=== PATIENT | female | born 1975 | race Asian ===

== ENCOUNTER 2018-12-20 11:20 | Emergency (ER) | payer OTHER ==
[~2018-12-20] VITALS: Ht 165.1 cm; Wt 49.9 kg
--- NOTE | 2018-12-20 11:32 | NUR ---
ED Nurse Note: PT WALKED IN TO ER TODAY FROM HOME. AOX4. PT C/O INTERMITTENT ANXIETY AND HEART PALPITATIONS X 1 WEEK AGO. PT STATES SHE HAS HX OF ANXIETY FROM WHEN SHE WAS IN COLLEGE AND WAS PRESCRIBED XANAX THEN. PT STATES SHE HAS NOT NEEDED MEDICATION FOR ANXIETY SINCE THEN. AT BEDSIDE, PT IS TACHYCARDIC, HR124. PT DENIES SOB OR CP.
[2018-12-20 11:34] VITALS: BP 124/68
[2018-12-20 12:13] LABS: EOSINOPHILS % (AUTO) 0.3 % (0.0-3.0); HEMATOCRIT 43.3 % (37.0-47.0); HEMOGLOBIN 14.6 G/DL (12.0-16.0); LYMPHOCYTES % (AUTO) 20.1 % (20.0-45.0); MEAN CORPUSCULAR VOLUME 94 FL (80-99); MONOCYTES % (AUTO) 7.3 % (1.0-10.0); NEUTROPHILS % (AUTO) 71.3 % (45.0-75.0); PLATELET COUNT 286 K/UL (150-450); RED BLOOD COUNT 4.59 M/UL (4.20-5.40); RED CELL DISTRIBUTION WIDTH 11.9 % (11.6-14.8); WHITE BLOOD COUNT 7.8 K/UL (4.8-10.8)
[2018-12-20 12:13] LABS: APPEARANCE,URINE CLEAR; BILIRUBIN, URINE NEGATIVE (NEGATIVE); GLUCOSE, URINE (UA) 1+ (NEGATIVE); KETONES,URINE 1+ (NEGATIVE); LEUKOCYTE ESTERASE ,URINE 1+ (NEGATIVE); NITRITE,URINE NEGATIVE (NEGATIVE); PH,URINE 7 (4.5-8.0); PROTEIN,URINE NEGATIVE (NEGATIVE); UROBILINOGEN,URINE 1 MG/DL (0.0-1.0)
[2018-12-20 12:14] LABS: COLOR,URINE YELLOW
[2018-12-20 12:19] LABS: ANION GAP 9 mmol/L (5-15); BLOOD UREA NITROGEN 2 mg/dL (7-18); CALCIUM 9.5 MG/DL (8.5-10.1); CARBON DIOXIDE 25 MMOL/L (21-32); CHLORIDE 106 MMOL/L (98-107); CREATININE 0.8 MG/DL (0.55-1.30); POTASSIUM 3.4 MMOL/L (3.5-5.1); SODIUM 140 MMOL/L (136-145)
--- NOTE | 2018-12-20 12:21 | NUR ---
ED Nurse Note: XRAY AT BEDSIDE.
[2018-12-20 12:34] LABS: ALANINE AMINOTRANSFERASE 17 U/L (12-78); ALBUMIN/GLOBULIN RATIO 1.1 (1.0-2.7); ALKALINE PHOSPHATASE 58 U/L (46-116); ASPARTATE AMINO TRANSFERASE 15 U/L (15-37); BILIRUBIN,TOTAL 0.5 MG/DL (0.2-1.0); CKMB 0.8 NG/ML (0.0-3.6); CREATINE KINASE 45 U/L (26-308)
--- NOTE | 2018-12-20 13:38 | Diagnostic Imaging Report ---
Indication: Reason For Exam: SOB Technique: One view of the chest Comparison: none Findings: Lungs and pleural spaces are clear. Heart size is normal. 18 mm nodular opacity left lung base probably represents a nipple shadow Impression: No acute process Left basilar nodular opacity, probably a nipple shadow. Recommend repeat with nipple markers Findings discussed by phone with Dr. Arellano in the emergency room at the time of interpretation
[2018-12-20 14:18] VITALS: BP 118/64
--- NOTE | 2018-12-20 15:03 | NUR ---
ED Nurse Note: XRAY AT BEDSIDE.
--- NOTE | 2018-12-20 15:19 | Diagnostic Imaging Report ---
Indication: Chest pain, basilar lung nodule on previous chest radiograph Technique: One view of the chest with nipple markers Comparison: 2 1/2 hours earlier Findings: Chest radiograph with nipple markers confirms that the nodular density previously seen at the left lung base is indeed a nipple shadow, and that a much more subtle nodular density projects over the right hemidiaphragm is also a nipple shadow. Lungs are clear. Impression: Negative. Basilar nodular opacities represent nipple shadows
--- NOTE | 2018-12-20 15:30 | Emergency Room Report ---
History of Present Illness General Chief Complaint: General Complaint Source: Patient Present Illness HPI This patient states that for the past few weeks she has felt a rapid heartbeat. She states she has been very anxious. She states she also feels "shaky." She states that she had anxiety when she was younger in high school and the symptoms are very similar. She denies chest pain. She denies shortness of breath. She denies abdominal pain. She denies recent illness. She denies being. She denies tingling or numbness. She has no other complaints. He denies alcohol, tobacco or drug use. Allergies: Coded Allergies: Dairy (Verified Allergy, Unknown, 12/20/18) Patient History Past Medical History: none, see triage record Social History: Denies: smoking, alcohol use, drug use Last Menstrual Period: 11/26/18 Reviewed Nursing Documentation: PMH: Agreed; PSxH: Agreed Nursing Documentation-PMH Past Medical History: No History, Except For Review of Systems All Other Systems: negative except mentioned in HPI Physical Exam Vital Signs Date Time Temp Pulse Resp B/P (MAP) Pulse Ox O2 Delivery O2 Flow Rate FiO2 12/20/18 11:23 98.2 126 17 127/73 (91) 99 Room Air Sp02 EP Interpretation: reviewed, normal General Appearance: no apparent distress, alert, GCS 15, non-toxic Head: normocephalic, atraumatic Eyes: bilateral eye normal inspection, bilateral eye PERRL ENT: hearing grossly normal, normal pharynx, no angioedema, normal voice Neck: full range of motion, supple/symm/no masses Respiratory: chest non-tender, lungs clear, normal breath sounds, no respiratory distress, no retraction, no accessory muscle use, speaking full sentences Cardiovascular #1: regular rate, rhythm, no edema Gastrointestinal: normal bowel sounds, non tender, soft, non-distended, no guarding, no rebound Rectal: deferred Musculoskeletal: back normal, gait/station normal, normal range of motion, non- tender Neurologic: alert, oriented x3, responsive, motor strength/tone normal, sensory intact, speech normal Psychiatric: judgement/insight normal, memory normal, mood/affect normal, no suicidal/homicidal ideation Skin: normal color, no rash, warm/dry, well hydrated Medical Decision Making Diagnostic Impression: Primary Impression: Sinus tachycardia Additional Impression: Hyperglycemia ER Course This patient did have sinus tachycardia on arrival. She primarily was in the 90s but would elevate into the 110s. I did a full work-up to include CBC, CMP, troponin and a thyroid function panel. These were all unremarkable. I also did a chest x-ray. There was no acute findings in the chest x-ray. The patient 's EKG showed only sinus tachycardia. The patient's urine drug screen was negative. Overall, I do not suspect this patient is using any type of stimulant. Likely she either has an inappropriate sinus tachycardia versus anxiety. The patient was instructed to follow-up with a raw stock drier tender for further evaluation. However, I do not feel that this patient would benefit from an admission to the hospital at this time. Possibly a Holter monitor would be more appropriate for her. I did educate her to see her primary care physician for further evaluation and for a referral. She indicated understanding and intention to do so. Laboratory Tests Test 12/20/18 11:45 12/20/18 11:47 Urine Color Yellow Urine Appearance Clear Urine pH 7 (4.5-8.0) Urine Specific Powers 1.015 (1.005-1.035) Urine Protein Negative (NEGATIVE) Urine Glucose (UA) 1+ (NEGATIVE) H Urine Ketones 1+ (NEGATIVE) H Urine Blood 1+ (NEGATIVE) H Urine Nitrite Negative (NEGATIVE) Urine Bilirubin Negative (NEGATIVE) Urine Urobilinogen 1 MG/DL (0.0-1.0) H Urine Leukocyte Esterase 1+ (NEGATIVE) H Urine RBC 0-2 /HPF (0 - 2) Urine WBC 2-4 /HPF (0 - 2) Urine Squamous Epithelial Cells Few /LPF (NONE/OCC) Urine Bacteria Occasional /HPF (NONE) Urine Mucus Few /LPF (NONE/OCC) H Urine HCG, Qualitative Negative (NEGATIVE) Urine Opiates Screen Negative (NEGATIVE) Urine Barbiturates Screen Negative (NEGATIVE) Phencyclidine (PCP) Screen Negative (NEGATIVE) Urine Amphetamines Screen Negative (NEGATIVE) Urine Benzodiazepines Screen Negative (NEGATIVE) Urine Cocaine Screen Negative (NEGATIVE) Urine Marijuana (THC) Screen Negative (NEGATIVE) White Blood Count 7.8 K/UL (4.8-10.8) Red Blood Count 4.59 M/UL (4.20-5.40) Hemoglobin 14.6 G/DL (12.0-16.0) Hematocrit 43.3 % (37.0-47.0) Mean Corpuscular Volume 94 FL (80-99) Mean Corpuscular Hemoglobin 31.9 PG (27.0-31.0) H Mean Corpuscular Hemoglobin Concent 33.8 G/DL (32.0-36.0) Red Cell Distribution Width 11.9 % (11.6-14.8) Platelet Count 286 K/UL (150-450) Mean Platelet Volume 6.7 FL (6.5-10.1) Neutrophils (%) (Auto) 71.3 % (45.0-75.0) Lymphocytes (%) (Auto) 20.1 % (20.0-45.0) Monocytes (%) (Auto) 7.3 % (1.0-10.0) Eosinophils (%) (Auto) 0.3 % (0.0-3.0) Basophils (%) (Auto) 1.0 % (0.0-2.0) Sodium Level 140 MMOL/L (136-145) Potassium Level 3.4 MMOL/L (3.5-5.1) L Chloride Level 106 MMOL/L (98-107) Carbon Dioxide Level 25 MMOL/L (21-32) Anion Gap 9 mmol/L (5-15) Blood Urea Nitrogen 2 mg/dL (7-18) L Creatinine 0.8 MG/DL (0.55-1.30) Estimate Glomerular Filtration Rate > 60 mL/min (>60) Glucose Level 142 MG/DL (74-106) H Calcium Level 9.5 MG/DL (8.5-10.1) Total Bilirubin 0.5 MG/DL (0.2-1.0) Aspartate Amino Transferase (AST) 15 U/L (15-37) Alanine Aminotransferase (ALT) 17 U/L (12-78) Alkaline Phosphatase 58 U/L (46-116) Total Creatine Kinase 45 U/L (26-308) Creatine Kinase MB 0.8 NG/ML (0.0-3.6) Creatine Kinase MB Relative Index 1.7 Troponin I 0.000 ng/mL (0.000-0.056) Total Protein 7.7 G/DL (6.4-8.2) Albumin 4.0 G/DL (3.4-5.0) Globulin 3.7 g/dL Albumin/Globulin Ratio 1.1 (1.0-2.7) Thyroid Stimulating Hormone (TSH) 1.453 uiU/mL (0.358-3.740) Free Thyroxine 1.06 NG/DL (0.76-1.46) Free Triiodothyronine 2.9 pg/mL (2.3-4.2) EKG Diagnostic Results Rate: tachycardiac Rhythm: other - S.tachycardia ST Segments: no acute changes Rhythm Strip Diag. Results EP Interpretation: yes Rate: 110's Rhythm: no PVC's, no ectopy, other - S.tachycardia Chest X-Ray Diagnostic Results Chest X-Ray Diagnostic Results : Chest X-Ray Ordered: Yes # of Views/Limited/Complete: 1 View Indication: Other EP Interpretation: Yes Interpretation: no consolidation, no effusion, no pneumothorax, no acute cardiopulmonary disease Impression: No acute disease Electronically Signed by: Renay Fay DO Last Vital Signs Date Time Temp Pulse Resp B/P (MAP) Pulse Ox O2 Delivery O2 Flow Rate FiO2 12/20/18 14:18 98.2 88 17 118/64 100 Room Air Status: improved Disposition: HOME, SELF-CARE Condition: Improved Scripts No Active Prescriptions or Reported Meds Referrals: NOT CHOSEN IPA/,REFERRING (PCP) Renay Fay DO Dec 20, 2018 15:30
[2018-12-20] MEDS ORDERED: LEXAPRO10 MG ORAL (15:45)
[2018-12-20 15:53] VITALS: BP 116/62
--- NOTE | 2018-12-20 15:53 | NUR ---
ED Nurse Note: PT LAYING PEACEFULLY IN BED IN NAD. AOX4. PRESCRIPTION AND DISCHARGE PAPERWORK EXPLAINED TO PT. PT VERBALIZES UNDERSTANDING AND ALL QUESTIONS ANSWERED. PRESCRIPTION AND DISCHARGE PAPERWORK GIVEN TO PT, IV AND ID WRISTBAND REMOVED. PT WALKED OUT OF ER WITH STEADY GAIT AND ALL BELONGINGS.
--- NOTE | 2018-12-23 13:54 | Cardiology Report ---
APPROVED REPORT EKG Measurement Heart [id number] Sinus tachycardia Incomplete RBBB Nonspecific T wave abnormality Abnormal ECG
== END 2018-12-20 15:54 | disposition home or self-care (01) ==
LOC: EMR 12:15
DX: R00.0 Tachycardia, unspecified (principal); R73.9 Hyperglycemia, unspecified
CPT/HCPCS: 36415; 71045; 80053; 80307; 81003; 81025; 82550; 82553; 84439; 84443; 84481; 84484; 85025; 93005; 96360; 99284

== ENCOUNTER 2018-12-22 17:58 | Emergency (ER) | payer OTHER ==
[~2018-12-22] VITALS: Ht 165.1 cm; Wt 49.9 kg
[~2018-12-22 17:58] MED LIST: LEXAPRO10 MG ORAL
--- NOTE | 2018-12-22 18:28 | NUR ---
ED Nurse Note: Patient walked in to the ER c/o anxiety x 30 min. Pt was here with the same complaint on 12/20/18 and was discharged with Escitalopram. No SI/HI. AOx4, VSS paul. Will cont to monitor.
[2018-12-22 18:31] VITALS: BP 110/79
--- NOTE | 2018-12-22 18:31 | Emergency Room Report ---
History of Present Illness General Chief Complaint: General Complaint Source: Patient, Medical Record Present Illness HPI 43-year-old female with no significant past medical history here complaining of palpitation and increased anxiety. Patient was here 2 days ago and was seen at [facility] due to same reason. Complete work-up was done patient was diagnosed with anxiety. Patient was given a prescription for Lexapro 10 mg daily however she reports that she never picked up the prescription. Patient decided to wait and see if her anxiety gets better before starting any new medication. She reports that this morning she started having a tingling sensation all over her body and severe anxiety palpitation. Denies chest pain, shortness of breath, nausea vomiting, blurred vision, dizziness and headache. Patient denies alcohol ingestion, drug use, smoking. Denies suicidal ideation, homicidal ideation, difficulty sleeping. She reports that she does not have a primary care provider Allergies: Coded Allergies: Dairy (Verified Allergy, Unknown, 12/20/18) Patient History Past Medical History: see triage record Past Surgical History: unable to obtain Pertinent Family History: none Last Menstrual Period: 12/26 Now: No : 1 Para: 0 Immunizations: UTD Reviewed Nursing Documentation: PMH: Agreed; PSxH: Agreed Nursing Documentation-PMH History Of Psychiatric Problem: Yes - Anxiety Review of Systems All Other Systems: negative except mentioned in HPI Physical Exam Vital Signs Date Time Temp Pulse Resp B/P (MAP) Pulse Ox O2 Delivery O2 Flow Rate FiO2 12/22/18 18:15 98.1 97 15 117/72 (87) 98 Room Air Sp02 EP Interpretation: reviewed, normal General Appearance: normal inspection, well appearing, no apparent distress Head: normocephalic, atraumatic Eyes: bilateral eye normal inspection, bilateral eye PERRL ENT: normal ENT inspection, normal pharynx Neck: normal inspection, supple Respiratory: normal inspection, chest non-tender, lungs clear, no wheezing Cardiovascular #1: normal inspection, normal peripheral pulses, regular rate, rhythm, no murmur Gastrointestinal: normal inspection, non tender Rectal: deferred Genitourinary: no CVA tenderness Musculoskeletal: normal inspection, back normal Neurologic: normal inspection, alert, oriented x3, responsive Psychiatric: normal inspection, judgement/insight normal Skin: normal inspection, normal color, no rash, warm/dry Lymphatic: normal inspection, no adenopathy Medical Decision Making PA Attestation All diagnoses and treatment plans were reviewed and discussed with my supervising physician Dr. Guerra Diagnostic Impression: Primary Impression: Anxiety ER Course 43-year-old female with no significant past medical history here complaining of palpitation and increased anxiety. Patient was here 2 days ago and was seen at [facility] due to same reason. Complete work-up was done patient was diagnosed with anxiety. Patient was given a prescription for Lexapro 10 mg daily however she reports that she never picked up the prescription. Patient decided to wait and see if her anxiety gets better before starting any new medication. She reports that this morning she started having a tingling sensation all over her body and severe anxiety palpitation. Denies chest pain, shortness of breath, nausea vomiting, blurred vision, dizziness and headache. Patient denies alcohol ingestion, drug use, smoking. Denies suicidal ideation, homicidal ideation, difficulty sleeping. She reports that she does not have a primary care provider Ddx considered but are not limited to: generalized anxiety disorder, panic attack, depression with psycotic featurs, bipolar disorder, drug overdose Vital signs: are WNL, pt. is afebrile H&PE are most consistent with: Anxiety ORDERS: 3-day supplies of propranolol for symptom relief only, I highly advised patient to start taking escitalopram and gave her a list of free clinics and psychiatric facilities to go to. ED INTERVENTIONS: None required at this time. DISCHARGE: At this time pt. is stable for d/c to home. Will provide printed patient care instructions, and any necessary prescriptions. Care plan and follow up instructions have been discussed with the patient prior to discharge. 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 Chaparrita Mendoza Dec 22, 2018 18:31
[2018-12-22] MEDS ORDERED: PROPRANOLOL HCL10 MG ORAL (18:33)
[2018-12-22 18:49] VITALS: BP 110/79
--- NOTE | 2018-12-22 18:49 | NUR ---
ER DISCHARGE NOTE: Patient is cleared to be discharged per ERMD, pt is aox4, on room air, with stable vital signs. pt was given dc and prescription instructions, pt was able to verbalize understanding, pt id band removed. pt is able to ambulate with steady gait. pt took all belongings.
== END 2018-12-22 18:49 | disposition home or self-care (01) ==
LOC: EMR 18:43
DX: F41.9 Anxiety disorder, unspecified (principal); Z91.011 Allergy to milk products
CPT/HCPCS: 99282